=== PATIENT | male | born 1970 | race Two or more races ===

== ENCOUNTER 2017-01-22 10:27 | Emergency (ER) | payer MEDICAID ==
[~2017-01-22] VITALS: Ht 157.5 cm; Wt 88.5 kg
[2017-01-22 10:34] VITALS: BP 112/71
[2017-01-22] MEDS ORDERED: TETANUS-DIPTH-ACEL PERTUSSIS 0.5ML SYRG IM ONE (12:30)
[2017-01-22] MEDS ORDERED: KETOROLAC TROMETH 60MG/2ML VIAL IM ONE (12:30)
== END 2017-01-22 12:44 | disposition home or self-care (01) ==
LOC: ER 10:27
DX: S01.01XA Laceration without foreign body of scalp, initial encounter (principal); Z23 Encounter for immunization; W19.XXXA Unspecified fall, initial encounter; Y93.89 Activity, other specified; Y99.8 Other external cause status; Y92.89 Other specified places as the place of occurrence of the external cause
CPT/HCPCS: 12002; 70450; 90471; 90715; 96372; 99284; J1885

== ENCOUNTER 2017-01-30 07:35 | Emergency (ER) | payer MEDICAID ==
[~2017-01-30] VITALS: Ht 165.1 cm; Wt 88.5 kg
[2017-01-30 07:49] VITALS: BP 118/65
== END 2017-01-30 08:42 | disposition home or self-care (01) ==
LOC: ER 07:35
DX: S01.01XD Laceration without foreign body of scalp, subsequent encounter (principal); Z48.02 Encounter for removal of sutures

== ENCOUNTER 2019-08-05 14:21 | Emergency (ER) | payer MEDICAID ==
[~2019-08-05] VITALS: Ht 154.9 cm; Wt 94.3 kg
[2019-08-05 14:57] LABS: Basophils # (auto) 0 uL; Basophils % (auto) 0.2 % (0.0-2.0); Eosinophils # (auto) 0 uL; Eosinophils % (auto) 0.3 % (0.0-7.0); Hematocrit 46.3 % (41.0-53.0); Lymphocytes # (auto) 1.3 uL; Lymphocytes % (auto) 9.2 % (10.0-50.0); Mean Corpuscular Hemoglobin 28.6 pg (28.0-32.0); Mean Corpuscular Hgb Conc. 34.5 g/dL (32.0-36.0); Mean Corpuscular Volume 82.9 fL (80.0-100.0); Monocytes # (auto) 0.8 uL; Monocytes % (auto) 5.7 % (0.0-12.0); Neutrophils # (auto) 11.6 uL; Neutrophils % (auto) 84.6 % (37.0-80.0); Nucleated Red Blood Cells % 0.1 %; Platelet Count (auto) 209 10^3/uL (140-450); Red Blood Cells 5.58 10^6/uL (4.5-5.90); Red Cell Distribution Width 13.7 % (11.8-14.3); White Blood Cell 13.7 10^3/uL (4.4-10.8)
[2019-08-05] MEDS ORDERED: SODIUM CHLORIDE 0.9% 1,000 ML IV ONE ×2 (15:01)
[2019-08-05 15:11] LABS: Albumin 4.5 g/dL (3.4-5.0); Calcium 8.7 mg/dL (8.5-10.1)
[2019-08-05 15:14] LABS: BUN/Creatinine Ratio 12.1; Bilirubin, Total 0.4 mg/dL (0.2-1.0); Total Protein 7.9 g/dL (6.4-8.2)
[2019-08-05] MEDS ORDERED: PHENYTOIN IV DILANTIN 500 MG in SODIUM CHL 0.9% 100 ML IV ONE (15:15)
[2019-08-05 15:43] LABS: INR 1.07 (0.9-1.15); Partial Thromboplastin Time 25.8 sec (23.64-32.05)
[2019-08-05 16:47] LABS: Urine WBC None Seen /hpf (0 - 3)
[2019-08-05 17:05] LABS: Urine Bacteria NONE SEEN /hpf (None Seen); Urine Blood TRACE /uL (Negative); Urine Sperm PRESENT /hpf (None Seen)
[2019-08-05 18:03] VITALS: BP 123/70
[2019-08-05] MEDS ORDERED: HYDROcodone-ACET 5/325MG TAB PO ONE (18:15)
== END 2019-08-05 18:43 | disposition left against medical advice (07) ==
LOC: ER 14:31
DX: S00.83XA Contusion of other part of head, initial encounter (principal); G40.909 Epilepsy, unspecified, not intractable, without status epilepticus; R41.82 Altered mental status, unspecified; X58.XXXA Exposure to other specified factors, initial encounter; Y93.89 Activity, other specified; Y92.098 Other place in other non-institutional residence as the place of occurrence of the external cause; Y99.8 Other external cause status
CPT/HCPCS: 36415; 70450; 71045; 72125; 80053; 80185; 81001; 84484; 85025; 85610; 85730; 96361; 96365; 99284; J1165; J7030

== ENCOUNTER 2019-10-08 08:43 | Emergency (ER) | payer MEDICAID ==
[~2019-10-08] VITALS: Ht 154.9 cm; Wt 94.3 kg
[2019-10-08] MEDS ORDERED: predniSONE 20 MG TAB PO ONE (10:45)
[2019-10-08 12:40] VITALS: BP 120/85
== END 2019-10-08 12:46 | disposition home or self-care (01) ==
LOC: ER 08:43
DX: G51.0 Bell's palsy (principal); M62.838 Other muscle spasm
CPT/HCPCS: 70450; 93005; 99284; J7512